=== PATIENT | male | born 1955 | race Hispanic/Latino ===

== ENCOUNTER 2016-11-22 09:01 | Outpatient (CLI) | payer BC ==
[2016-11-22] MEDS ORDERED: LEXISCAN IV ONE ×2 (10:48)
[2016-11-22 12:53] VITALS: BP 138/65
--- NOTE | 2016-11-22 23:30 | Treadmill Report ---
INDICATION: Cardiac clearance. ORDERING PHYSICIAN: Hammad Brandt MD FINDINGS: There is evidence of a moderate sized predominantly fixed inferior and inferolateral wall defect consistent with a prior myocardial infarction in the right coronary artery distribution. There is lack of uptake on gated imaging in the inferior, inferolateral wall suggesting inferior wall akinesis. The left ventricle is normal in size with an ejection fraction measured at 68%. IMPRESSION: 1. Intermediate risk myocardial perfusion scan associated with 1-3% cardiac mortality in the next 1 year. 2. Moderate sized fixed inferior and inferolateral defect with akinesis consistent with a prior history of myocardial infarction in the right coronary artery distribution. 3. No scintigraphic evidence of myocardial ischemia. 4. Clinical correlation is recommended. JOB# [id number] GLENN/BREA
== END 2016-11-22 09:02 | disposition home or self-care (01) ==
LOC: CARD 09:01
PROVIDERS: ATTEND Internal Medicine Cardiovascular Disease
DX: I10 Essential (primary) hypertension (principal); I47.1 Supraventricular tachycardia
CPT/HCPCS: 78452; 93017; A9502; J2785

== ENCOUNTER 2016-11-27 06:06 | Inpatient (IN) | payer BC ==
[2016-11-24 09:58] LABS: Basophils % (Auto) 0.4 % (0.0-1.8); Eosinophils % (Auto) 8.4 % (0.0-4.3); Hematocrit 46.2 % (35.5-45.6); Hemoglobin 15.9 gm/dl (11.8-15.2); Mean Corpuscular HGB Conc 35 % (32-34); Mean Corpuscular Hemoglobin 31 pg (28-32); Mean Corpuscular Volume 91 fl (84-94); Platelet Count 231 K/mm3 (140-440); Red Blood Count 5.07 M/mm3 (3.65-5.03); Red Cell Distribution Width 13.4 % (13.2-15.2); White Blood Count 5.5 K/mm3 (4.5-11.0)
[2016-11-24 10:08] LABS: Anion Gap 17 mmol/L; Blood Urea Nitrogen 9 mg/dL (9-20); Calcium 9.2 mg/dL (8.4-10.2); Carbon Dioxide 28 mmol/L (22-30); Chloride 102.8 mmol/L (98-107); Glucose 104 mg/dL (75-100); Potassium 4.8 mmol/L (3.6-5.0); Sodium 143 mmol/L (137-145)
--- NOTE | 2016-11-24 10:26 | Anesthesia Consultation ---
Anesthesia Consult and Med Hx Date of service: 11/27/16 - Airway Anesthetic Teeth Evaluation: Good ROM Head & Neck: Inadequate (herniated disc C7) Mental/Hyoid Distance: Inadequate Mallampati Class: Class III Intubation Access Assessment: Possibly Difficult - Pulmonary Exam CTA: Yes - Cardiac Exam Cardiac Exam: RRR - Pre-Operative Health Status ASA Pre-Surgery Classification: ASA3 Proposed Anesthetic Plan: General - Pulmonary Hx Smoking: No Hx Asthma: No COPD: No Hx Pneumonia: No Hx Sleep Apnea: No - Cardiovascular System Hx Hypertension: Yes (FOR 8 YRS, DR. LYNNE- PCP, DR.AKSHAY PHIPPS- [employer] ) Hx Cardia Arrhythmia: Yes (h/oSVT - artrial tach w/ freq PAC's; well controlled with BP med) Hx Valvular Heart Disease: Yes (mild AR and MR) Hx Heart Murmur: No Hx Peripheral Vascular Disease: No - Central Nervous System CVA: Yes (10/2016 - no residual) Hx Psychiatric Problems: No - Gastrointestinal Hx Gastroesophageal Reflux Disease: Yes - Endocrine Hx Renal Disease: Yes (h/o kidney stones) Hx End Stage Renal Disease: No Hx Insulin Dependent Diabetes: No - Hematic Hx Anemia: No Hx Sickle Cell Disease: No - Other Systems Hx Alcohol Use: No Hx Substance Use: No Hx Cancer: No Hx Obesity: No - Additional Comments Anesthesia Medical History Comments: Patient states "head extension causes blood flow to cutoff and will become dizzy and/or faint." Herniated/ruptured disc at C7 - no recent MRI's. Per Vascular MD, patient to remain on Plavix and Aspirin. Wears hearing aids.
[~2016-11-27 06:06] MED LIST: ANCEF/STERILE WATER 2 GM/20 ML 20 ML IV NR; NACL 0.9% 1000 ML 1,000 ML IV SCH; PEPCID IV NR; VERSED IV NR
[2016-11-27] MEDS ORDERED: NACL BACTERIOSTATIC INFILTRATI ONE (06:07)
[2016-11-27] MEDS ORDERED: ZOFRAN ONE (06:30)
[2016-11-27] MEDS ORDERED: XYLOCAINE MPF 2% ONE (06:30)
[2016-11-27] MEDS ORDERED: DIPRIVAN 10 MG/ML IV ONE (06:30)
[2016-11-27] MEDS ORDERED: DECADRON ONE (06:30)
[2016-11-27] MEDS ORDERED: ZEMURON IV ONE (06:31)
[2016-11-27] MEDS ORDERED: AMIDATE IV ONE (06:31)
[2016-11-27] MEDS ORDERED: SUBLIMAZE ONE (06:37)
[2016-11-27] MEDS ORDERED: NEO SYNEPHRINE ONE (06:50)
--- NOTE | 2016-11-27 07:36 | Anesthesia Day of Surgery ---
Anesthesia Day of Surgery - Day of Surgery Patient Examined: Yes Patient H&P Reviewed: Yes Patient is NPO: Yes Beta Blockers: Yes
[2016-11-27] MEDS ORDERED: HEPARIN 10,000 UNITS/10 ML ONE (07:59)
[2016-11-27] MEDS ORDERED: ROBINUL ONE ×2 (07:59→09:05)
[2016-11-27] MEDS ORDERED: NACL 0.9% 500 ML ONE (08:00)
[2016-11-27] MEDS ORDERED: DIPRIVAN 10 MG/ML 100 ML IV ONE (08:04)
[2016-11-27] MEDS ORDERED: ZOFRAN IV PRN ×2 (08:43→10:40)
[2016-11-27] MEDS ORDERED: DILAUDID IV PRN (08:43)
[2016-11-27] MEDS ORDERED: HEPARIN 10,000 UNITS/10 ML 2,000 UNIT in NACL 0.9% 500 ML 500 ML IR ONE (09:05)
[2016-11-27] MEDS ORDERED: BLOXIVERZ ONE (09:05)
[2016-11-27] MEDS ORDERED: MARCAINE 0.25% INFILTRATI ONE (09:06)
[2016-11-27] MEDS ORDERED: XYLOCAINE 1% 20 mL INFILTRATI ONE (09:07)
[2016-11-27] MEDS ORDERED: ePHEDrine SULFATE ONE (09:13)
[2016-11-27] MEDS ORDERED: NACL 0.9% 100 ML ONE (09:34)
[2016-11-27] MEDS ORDERED: NACL 0.9% IR ONE (09:34)
[2016-11-27] MEDS ORDERED: NACL 0.9% 1000 ML 1,000 ML ONE (09:34)
[2016-11-27] MEDS ORDERED: PROTAMINE SULFATE IV ONE (10:15)
[2016-11-27] MEDS ORDERED: MORPHINE IV PRN ×2 (10:40)
--- NOTE | 2016-11-27 10:56 | Operative Report ---
Operative Report Operative Report: Date of procedure: 11/27/2016 Pre-operative diagnosis: Symptomatic left internal carotid artery stenosis with recent stroke Post-operative diagnosis: Same Procedure name(s): 1. Left carotid endarterectomy with bovine pericardial patch angioplasty 2. Completion duplex ultrasound Surgeon: Harley Orellana MD, RPVI Plating Technician: MAKAYLA Fabian Anesthesia: Gen. EEG and SSEP's monitoring Findings 1. High grade left ICA stenosis. 2. Necrotic ulcerated lesion with combination of altered fresh thrombus. 3. EEGs and SSEPs remained stable throughout the entire procedure with no changes. 4. Complete resolution of the stenosis was normalization of ICA velocities. 5. No loose debris or intimal flap on the completion duplex. 6. Patient woke up moving all 4 extremities. Specimens: Carotid plaque EBL: 75 mL IV fluids: 950 mL Urine output: 275 mL Disposition: The recovery Indications: Symptomatic left ICA stenosis. Procedure Patient was brought to the operating room and laid on the operating room table in supine position. After general endotracheal anesthesia was achieved and EEG leads placed patient was positioned for the left carotid endarterectomy. Patient was prepped and draped in usual sterile fashion. An incision along the sternocleidomastoid muscle was made using #15 blade. Subcutaneous tissue was divided with Bovie electrocautery. The platysma was divided with Bovie electrocautery. The sternocleidomastoid muscle was dissected and retracted laterally. The internal jugular vein was dissected the facial vein was divided between 2-0 silk ties and it was retracted laterally. The common carotid artery was dissected free and encircled with a Gisel tourniquet. The dissection continued cephalad. The superior thyroid and external carotid arteries were dissected free and encircled with 2-0 silk tie and small vessel loop respectively. The internal carotid artery was dissected distal to the stenosis and encircled with a vessel loop. Patient received 6000 units of heparin. After 3 minutes the vessels were occluded. The internal carotid artery was occluded first. There were no changes in the EEG is after 3 minutes The endarterectomy was performed using a [place] elevator. The plaque was removed in its entirety. The loose intima was picked off using forceps. The endarterectomy site was irrigated with heparinized saline and no intimal flaps were noted. The endarterectomy site was closed using a bovine pericardial patch and 6-0 Prolene running suture. Prior to the completion of all the patch the backbleeding maneuvers were performed. Brisk back bleeding was seen from all the vessels. The patch was completed expeditiously . The clamps were removed the internal carotid clamp was removed last. There were no changes on EEG monitoring. Patient received 15 mL of protamine. The hemostasis was adequate and no significant bleeding was seen from the patch. The pressures during the surgery was maintained at about 170. No bleeding was seen. Postoperative ultrasound was performed, please see findings for details. After the ultrasound, the wound was closed using 3-0 Vicryl platysmal layer and 4-0 Monocryl subcuticular closure. The skin was infiltrated with Marcaine for postop pain. Patient tolerated procedure well. He awoke neurologically intact. He was transferred to recovery room.
[2016-11-27] MEDS ORDERED: NACL 0.9% 1000 ML 1,000 ML IV SCH (11:00)
[2016-11-27] MEDS ORDERED: INTROPIN DRIP 800 MG/D5W 250 ML 250 ML IV SCH (11:00)
[2016-11-27] MEDS ORDERED: NIPRIDE 50 MG in D5W 248 ML IV SCH (11:00)
[2016-11-27] MEDS ORDERED: ANCEF/NS 1 GM/50 ML 50 ML IV SCH ×2 (11:00→20:00)
--- NOTE | 2016-11-27 11:44 | Post Anesthesia Evaluation ---
- Post Anesthesia Evaluation Patient Participated: Yes Airway Patent: Yes Stable Respiratory Function: Yes Nausea/Vomiting: No Temp > 96.8F: Yes Pain Manageable: Yes Adequeate Hydration: Yes Anesthesia Complications: No Block Receding Appropriately: Not Applicable Patient on Ventilator: No
--- NOTE | 2016-11-27 11:46 | Progress Note ---
Assessment and Plan Postop check Status post left carotid endarterectomy. Neurologically intact. No evidence of any intraoperative complications. Plan: ICU monitoring. Strict blood pressure control. Neurologic monitoring. Pain control. Subjective Date of service: 11/27/16 Principal diagnosis: symptomatic left carotid artery stenosis Interval history: No complaints. Following commands. Objective - Exam Narrative Exam: Left neck incision is clean and dry and well approximated. No swelling or drainage. No redness. Moving all 4 extremities neurologically intact. Tongue is midline on request. Voice is normal no hoarseness. - Constitutional Vitals: Vital Signs - 12hr 11/27/16 11/27/16 11/27/16 06:25 11:00 11:05 Temperature 98.1 F 97.1 F L Pulse Rate 69 69 66 Respiratory 20 14 16 Rate Blood Pressure 160/80 98/41 96/49 O2 Sat by Pulse 99 100 100 Oximetry 11/27/16 11/27/16 11/27/16 11:10 11:15 11:30 Temperature Pulse Rate 64 63 62 Respiratory 16 17 15 Rate Blood Pressure 97/50 92/48 93/49 O2 Sat by Pulse 100 99 99 Oximetry - Labs CBC & Chem 7: 11/24/16 09:40 11/24/16 09:40
--- NOTE | 2016-11-27 11:57 | Consultation ---
History of Present Illness Consult date: 11/27/16 Requesting physician: MILO BAKER Reason for consult: other (S/P CEA) History of present illness: PULMONARY/CCM CONSULT NOTE (Full dictation # [id number]) Please see dictated notes for full details Medications and Allergies Allergies Allergy/AdvReac Type Severity Reaction Status Date / Time No Known Allergies Allergy Verified 11/22/16 10:48 Home Medications Medication Instructions Recorded Confirmed Last Taken Type Clopidogrel Bisulfate [Plavix] 75 mg PO DAILY #30 tablet 10/27/16 11/22/1611/27 04:45 Rx Simvastatin [Zocor TAB] 20 mg PO QHS #30 tablet 10/27/16 11/22/16 11/26/16 Rx Aspirin EC [Aspirin Enteric Coated 81 mg PO QDAY 11/22/16 11/22/16 11/27/16 04: 45 History TAB] Metoprolol [Lopressor TAB] 50 mg PO QDAY 11/22/16 11/22/16 11/27/16 04:45 History Cholecalciferol Vit D3 [Vitamin D3] 1,000 unit PO QDAY 11/24/16 11/24/16 History Active Meds: Active Medications Acetaminophen/Hydrocodone Bitart ([place] 5/325) 1 each PO Q6H PRN PRN Reason: Pain, Moderate (4-6) Aspirin (Halfprin Ec) 81 mg PO QDAY NATASHA Cholecalciferol (Vitamin D3) 1,000 unit PO QDAY NATAHSA Clopidogrel Bisulfate (Plavix) 75 mg PO DAILY NATASHA Docusate Sodium (Colace) 100 mg PO BID NATASHA Famotidine (Pepcid) 20 mg IV PREOP NR Stop: 11/27/16 11:59 Last Admin: 11/27/16 06:55 Dose: 20 mg Hydromorphone HCl (Dilaudid) 0.5 mg IV Q10MIN PRN PRN Reason: Pain , Severe (7-10) Stop: 11/30/16 08:44 Cefazolin Sodium (Ancef/Sterile Water 2 Gm/20 Ml) 20 mls @ 80 mls/hr IV PREOP NR PRN Reason: Protocol Stop: 11/27/16 23:00 Sodium Chloride (Nacl 0.9% 1000 Ml) 1,000 mls @ 42 mls/hr IV DIRECT NATASHA Last Admin: 11/27/16 06:50 Dose: 42 mls/hr Dopamine HCl/Dextrose (Intropin Drip 800 Mg/D5w 250 Ml) 250 mls @ 9.14 mls/hr IV TITR NATASHA; 5 MCG/KG/MIN PRN Reason: Protocol Sodium Chloride (Nacl 0.9% 1000 Ml) 1,000 mls @ 100 mls/hr IV DIRECT NATASHA Stop: 11/27/16 20:59 Sodium Nitroprusside 50 mg/ (Dextrose) 250 mls @ 7.31 mls/hr IV TITR NATASHA; 0.25 MCG/KG/MIN PRN Reason: Protocol Cefazolin Sodium (Ancef/Ns 1 Gm/50 Ml) 50 mls @ 100 mls/hr IV Q8H NATASHA Stop: 11/27/16 19:29 Metoprolol Tartrate (Lopressor) 50 mg PO QDAY NATASHA Midazolam HCl (Versed) 2 mg IV PREOP NR Stop: 11/27/16 23:59 Last Admin: 11/27/16 06:52 Dose: 2 mg Morphine Sulfate (Morphine) 2 mg IV Q4H PRN PRN Reason: Pain, Moderate (4-6) Morphine Sulfate (Morphine) 4 mg IV Q4H PRN PRN Reason: Pain , Severe (7-10) Ondansetron HCl (Zofran) 4 mg IV Q8H PRN PRN Reason: Nausea And Vomiting Simvastatin (Zocor) 20 mg PO QHS [facility] Physical Examination Vital signs: Vital Signs Temp Pulse Resp BP 98.7 F 64 20 160/88 11/24/16 09:40 11/24/16 09:40 11/24/16 09:40 11/24/16 09:40 Results - Laboratory Findings CBC and BMP: 11/24/16 09:40 11/24/16 09:40 Abnormal lab findings: Abnormal Labs 11/24/16 11/24/16 09:40 09:40 RBC 5.07 H Hgb 15.9 H Hct 46.2 H MCHC 35 H [place] % (Auto) 7.5 H Eos % (Auto) 8.4 H Eos # 0.5 H Glucose 104 H
--- NOTE | 2016-11-27 12:03 | Admit Criteria Form ---
Admission Criteria Documentation: AMBULATORY SURGERY EXCEPTION CRITERIA Ambulatory Surgery Exception Criteria ( Place 'X' for any and all applicable criteria): Surgery or procedure performed on ambulatory basis may require inpatient stay for[A] ANY ONE of the following(1)(2)(3)(4)(5)(6)(7)(8)(9): [X] I. A preoperative situation, condition, or finding that warrants inpatient stay as indicated by ANY ONE of the following: [] a) Inpatient care needed because of severity of a disease or condition rather than the surgery (eg, severe cardiac or respiratory disease, severe infection) (15) (16 ) (17) (18) [] b) Emergent procedure (eg, angioplasty for acute ischemia)(19) [] c) Complex surgical approach or situation as indicated by ANY ONE of the following(3): [] i) Open approach needed instead of usual endoscopic, transcatheter, or other less invasive procedure [] ii) Difficult approach because of previous operation [] iii) Airway monitoring required after open neck procedures(20)(21) [] iv) Large mass requiring unusually extensive dissection [] v) Additional complicating feature requiring inpatient care (eg, drain management)(22(23): [X] d) Major surgery in a pt with high anesthetic risk as indicated by ANY ONE of the following (2)(3)(5)(7)(8): [X] i) ASA risk class III or higher (severe systemic disease impairing function) [D] [] ii) Advanced age (eg, older than 85 years)(14)(24) [] iii) Symptomatic heart failure(25) [] iv) Symptomatic asthma or COPD(8)(21) [] v) Morbid obesity with hemodynamic or respiratory problems(20)( 21)(26)(27) [] vi) Obstructive sleep apnea(20)(21) [] vii) Former premature infants who are younger than 60 weeks [] viii) High risk for severe postoperative abnormalities (eg, severe postoperative hypocalcemia after parathyroidectomy for severe hyperparathyroidism)(27)( 28) [] ix) Unstable angina(25) [] e) Drug-related risk requiring inpatient stay as indicated by ANY ONE of the following(5)(10)(14)(32)(33) [] i) Procedure requires discontinuing drugs or other therapy (eg , antiarrhythmic medication, antiseizure medication), which necessitates inpatient observation or treatment.(18)(31) [] ii) Major surgery and high risk drug use as indicated by ANY ONE of the following: [] 1) Active abuse of cocaine or similar drug [] 2) Monoamine oxidase inhibitor use [] 3) Other drug identified as posing risk [] f) Inadequate outpatient care situation as indicated by ANY ONE of the following(5)(10)(14)(32)(33) [] i) Patient lives remote from medical facility and procedure has urgent complication potential, and temporary nearby residence cannot be arranged [] ii) Patient will have postprocedure incapacitation and inadequate assistance at home, or alternative level of care cannot be arranged. [] iii) Patient will have long general anesthesia or procedure side effect resolution time, and competent person to stay with patient on first postoperative night at home or alternative level of care cannot be arranged. []iv) Other inadequate outpatient situation that cannot be handled by other means [] II. A perioperative event, condition, or finding that warrants inpatient stay as indicated by ANY ONE of the following (1)(2)(3): [] a) Inadequate physiologic recovery: cardiovascular, respiratory, or hemodynamic status not normal or near preoperative baseline(18) [] b) Hemodynamic instability [] c) Patient not alert with near normal or baseline mental status [] d) Temperature not normal or as expected and not appropriate for outpatient treatment of condition [] e) Ambulatory or appropriate activity level status not yet achieved post procedure [E](34)(35)(36) [] f) Operative site not appropriate (eg, unexpected or excessive drainage or bleeding) [] g) Postoperative effects not resolved or adequately managed (eg, significant pain or vomiting not appropriate for outpatient or next level of care)(10)(12) [] h) Complicating features requiring inpatient care as indicated by ANY ONE of the following(37): [] i) Severe complications of procedure (eg, bowel injury, airway compromise, vascular injury,severe hemorrhage) [] ii) Extensive (eg, dissection far beyond usual scope of procedure ) or prolonged (eg, 120 minutes beyond usual) surgery needed requiring inpatient postoperative care [] iii) Conversion to an open or complex procedure that requires inpatient care (eg, open vs laparoscopic cholecystectomy, abdominal vs vaginal hysterectomy)(38) [] iv) Comorbid condition or test result identified during or post procedure that requires inpatient care (7) [] v) Malignant hyperthermia(30) [] vi) Other complicating feature requiring inpatient care(22)(23) Inpatient stay may be needed until ALL of the following are present (1)(2)(3)(4) (5)(6)(10)(14)(33)(40): []a) Physiologic recovery: cardiovascular, respiratory, and hemodynamic status normal or near preoperative baseline []b) Hemodynamic stability []c) Patient alert, with near normal or baseline mental status []d) Temperature appropriate: patient afebrile or temperature appropriate for outpt treatment of condition []e) Activity level appropriate: ambulatory or appropriate activity level post procedure []f) Operative site appropriate as indicated by ALL of the following: []i) Site dry or with expected drainage []ii) Any blood noted is as expected for procedure. []g) Postoperative effects resolved or managed as indicated by ALL of the following: []i) Pain management appropriate for outpatient (or next level of) care(10) []ii) Minimal nausea and vomiting: if present, successfully treated with oral medication(12) []iii) Headache, dizziness, or drowsiness (if present) are mild. []h) Voiding status acceptable as indicated by ANY ONE of the following: []i) Voiding spontaneously []ii) No voiding but instructions given for follow-up in 6 to 8 hours []iii) Urinary catheter in place, and instructions given for follow-up []i) Complicating features requiring inpatient care manageable at a lower level of care(37) []j) Comorbid conditions manageable at a lower level of care(37) The original [employer] content created by [employer] has been revised. The portions of the content which have been revised are identified through the use of italic text or in bold, and [employer] [facility] [employer] has neither reviewed nor approved the modified material. All other unmodified content is copyright [employer]. Please see references footnoted in the original [employer] edition 2016 Admission Criteria Met: Yes
[2016-11-27] MEDS: NORCO 5/325 PO PRN (19:19)
[2016-11-27] MEDS ORDERED: ZOCOR PO SCH (22:00)
[2016-11-27] MEDS: COLACE PO SCH (22:17)
[2016-11-28] MEDS ORDERED: DEEP SEA NS PRN (02:40)
--- NOTE | 2016-11-28 07:47 | Vascular Lab Report ---
INTRAOPERATIVE CAROTID ARTERY DUPLEX Reason for exam: Completion of carotid endarterectomy Comments on the left: The common and internal carotid arteries are patent without evidence of intraluminal irregularities. Flow velocities appear to be appropriate. No obvious technical defects at the endarterectomy site appreciated. Impression: No obvious technical imperfections at the endarterectomy site.
[2016-11-28] MEDS: NORCO 5/325 PO PRN (08:50)
[2016-11-28] MEDS ORDERED: VITAMIN D3 PO SCH (10:00)
[2016-11-28] MEDS ORDERED: HALFPRIN EC PO SCH (10:00)
[2016-11-28] MEDS ORDERED: LOPRESSOR PO SCH (10:00)
[2016-11-28] MEDS ORDERED: PLAVIX PO SCH (10:00)
[2016-11-28] MEDS ORDERED: PEPCID PO SCH (10:00)
--- NOTE | 2016-11-28 10:07 | Consultation ---
CONSULTING PHYSICIAN: Harley Orellana MD REASON FOR CONSULTATION: Status post carotid endarterectomy, need an ICU admission for monitoring. 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 At that time, a workup was started, which ultimately led to the finding of occlusions in the carotid arteries and his admission for an elective carotid endarterectomy on the left side today. When he came out of the operating room and I stopped by to see him in the room, he was resting in bed, sounded a little hoarse, and that was blamed on the endotracheal tube and intubation. He denied any acute chest pain at that time. He denied fevers or chills. He is obese. He has had a sleep study done a few years back he said, but his in the room admits to witnessed apneas and snoring. He has not been officially diagnosed with sleep apnea. He is a lifetime nonsmoker. That really is as much of the history of presentation as I have. PAST MEDICAL HISTORY: Hypertension. He is obese. PAST SURGICAL HISTORY: Now, status post carotid endarterectomy. MEDICATIONS: He was on at the time I stopped by to see him, according to the medication administration record included the following: He was on [place] 5/325 one tablet p.o. q. 6 hours p.r.n. moderate pain, aspirin 81 mg p.o. daily, Ancef 1 gram IV q. 8 hours, vitamin D3 1000 units p.o. daily, Plavix 75 mg p.o. daily, docusate sodium 100 mg p.o. b.i.d.. He was on dopamine at a point, I believe during perioperatively. Lopressor 50 mg p.o. daily, morphine 2 mg IV q. 4 hours p.r.n. moderate pain and 4 mg IV q. 4 hours p.r.n. severe pain, Zofran 4 mg IV q. 8 hours p.r.n. nausea and vomiting, Zocor 20 mg p.o. at bedtime, and he had been on a nitroprusside drip earlier. ALLERGIES: No known drug allergies. DIET: Obese gentleman. Denies any acute weight loss or gain, preceding few weeks to months. FAMILY AND SOCIAL HISTORY: Lives in the community. He is . Denies alcohol, tobacco, or illicit drug use or abuse. REVIEW OF SYSTEMS: No overt loss of consciousness. No new onset seizures. No new onset focal weakness. No gross hematochezia or melena. No gross hematuria or dysuria. No hematemesis. He has a little bit of sore throat now. No hemoptysis. He has a history of witnessed apneas. Complete review of systems obtained. Pertinent positives and/or negatives as in body of history above, otherwise they are noncontributory. PHYSICAL EXAMINATION: VITAL SIGNS: At presentation, he was afebrile, temperature 98.1, pulse was 69, respiratory rate was 20, blood pressure was 160/80, oxygen sats were 99%. Inspired oxygen concentration was not recorded. HEENT: Pupils are equal, round, about 3 mm, reactive to light. Extraocular muscle movements were intact. Grossly, no palpable lymph nodes in the supraclavicular or submandibular lymph node chains. There is a clean incision on the left neck where the carotid endarterectomy was done. No bleeding, no dressing over it. LUNGS: Auscultation of both lung chávez diminished/distant breath sounds. No wheezing. HEART: Heart sounds 1 and 2 are heard, regular rate and rhythm at the time of my evaluation. ABDOMEN: Soft, full, bowel sounds are positive, nontender. EXTREMITIES: Without overt digital clubbing, cyanosis, or pedal edema. NEUROLOGIC: The exam was grossly nonfocal. LABORATORY DATA: From my review are as follows: White cell count 5500, hemoglobin 15.9, hematocrit 46.2, platelets 231. Serum sodium is pending, potassium is pending, bicarbonate was 28, BUN 9, creatinine 0.9. I do not have any radiographic studies. ASSESSMENT AND PLAN: We have an elderly gentleman in with peripheral vascular disease, atherosclerotic vascular disease and status post carotid endarterectomy, actually doing very well. I have implored him to please get a sleep study done as with this new diagnosis, he has risk of complications and worsening morbidities with untreated sleep apnea increased. For this reason, I have advised him to seek a sleep evaluation once he is discharged from this hospital. For now, we will continue current care as ordered. BiPAP will only be on an as needed basis. He will be placed on GI prophylaxis. He is on DVT prophylaxis. Flu and pneumonia vaccination will be per protocol. Thank you very much for the consult. We will follow along and make further recommendations as picture progresses/becomes clearer. JOB# [id number] CHUCHO/NTS
--- NOTE | 2016-11-28 10:25 | Progress Note ---
Subjective Date of service: 11/28/16 Principal diagnosis: symptomatic left carotid artery stenosis Interval history: seen and examined at bedside; 24hour events reviewed; nursing and respiratory care staff consulted; no adverse overnight events reported to me; Objective Vital Signs - 12hr 11/27/16 11/27/16 11/27/16 22:30 23:00 23:27 Temperature 97.8 F Pulse Rate 68 68 Respiratory 18 22 Rate Blood Pressure 93/47 93/47 O2 Sat by Pulse 97 96 Oximetry 11/27/16 11/28/16 11/28/16 23:30 00:00 00:30 Temperature Pulse Rate 71 75 67 Respiratory 15 18 16 Rate Blood Pressure 97/52 102/50 97/52 O2 Sat by Pulse 96 97 96 Oximetry 11/28/16 11/28/16 11/28/16 01:00 01:30 02:00 Temperature Pulse Rate 66 67 65 Respiratory 19 19 19 Rate Blood Pressure 97/49 97/49 99/53 O2 Sat by Pulse 95 95 95 Oximetry 11/28/16 11/28/16 11/28/16 02:30 03:00 03:27 Temperature 98.4 F Pulse Rate 72 66 Respiratory 19 Rate Blood Pressure 99/53 92/44 O2 Sat by Pulse 97 95 Oximetry 11/28/16 11/28/16 11/28/16 03:30 04:00 04:22 Temperature Pulse Rate 62 61 67 Respiratory 23 17 17 Rate Blood Pressure 92/44 97/47 97/47 O2 Sat by Pulse 97 98 98 Oximetry 11/28/16 11/28/16 11/28/16 04:30 04:36 05:00 Temperature Pulse Rate 60 58 L 63 Respiratory 17 15 18 Rate Blood Pressure 97/47 97/47 99/50 O2 Sat by Pulse 98 99 96 Oximetry 11/28/16 11/28/16 11/28/16 05:30 06:00 06:30 Temperature Pulse Rate 63 64 72 Respiratory 19 18 11 L Rate Blood Pressure 99/50 103/53 103/53 O2 Sat by Pulse 96 96 94 Oximetry 11/28/16 11/28/16 11/28/16 07:00 07:30 08:00 Temperature Pulse Rate 66 64 71 Respiratory 16 19 14 Rate Blood Pressure 103/53 106/61 109/66 O2 Sat by Pulse 94 93 91 Oximetry 11/28/16 11/28/16 11/28/16 08:30 08:50 08:53 Temperature Pulse Rate 78 Respiratory 24 14 Rate Blood Pressure 109/66 O2 Sat by Pulse 94 98 Oximetry 11/28/16 11/28/16 11/28/16 09:00 09:30 10:00 Temperature Pulse Rate 73 70 71 Respiratory 24 19 12 Rate Blood Pressure 107/58 107/58 107/58 O2 Sat by Pulse 94 95 95 Oximetry CBC and BMP: 11/24/16 09:40 11/24/16 09:40 Abnormal lab findings: Abnormal Labs 11/24/16 11/24/16 09:40 09:40 RBC 5.07 H Hgb 15.9 H Hct 46.2 H MCHC 35 H Garvin % (Auto) 7.5 H Eos % (Auto) 8.4 H Eos # 0.5 H Glucose 104 H
[2016-11-28] MEDS: COLACE PO SCH (11:01)
[2016-11-28 11:05] VITALS: BP 107/55
--- NOTE | 2016-11-28 11:15 | Progress Note ---
Assessment and Plan Patient is status post left carotid endarterectomy without postoperative consultation. He's been out of bed, but has not ambulated . His Cooley catheter was removed last night, and he has successfully voided this morning. Discharge instructions were given to the patient and his at the bedside. All questions were asked and answered. We will increase his activity, if tolerated and he will be able to be discharged today after lunch. - Patient Problems (1) Symptomatic stenosis of left carotid artery Current Visit: Yes Status: Acute Subjective Date of service: 11/28/16 Principal diagnosis: symptomatic left carotid artery stenosis Interval history: Patient is awake and alert without specific complaints at present. Objective - Constitutional Vitals: Vital Signs - 12hr 11/27/16 11/27/16 11/28/16 23:27 23:30 00:00 Temperature 97.8 F Pulse Rate 71 75 Respiratory 15 18 Rate Blood Pressure 97/52 102/50 O2 Sat by Pulse 96 97 Oximetry 11/28/16 11/28/16 11/28/16 00:30 01:00 01:30 Temperature Pulse Rate 67 66 67 Respiratory 16 19 19 Rate Blood Pressure 97/52 97/49 97/49 O2 Sat by Pulse 96 95 95 Oximetry 11/28/16 11/28/16 11/28/16 02:00 02:30 03:00 Temperature Pulse Rate 65 72 66 Respiratory 19 19 Rate Blood Pressure 99/53 99/53 92/44 O2 Sat by Pulse 95 97 95 Oximetry 11/28/16 11/28/16 11/28/16 03:27 03:30 04:00 Temperature 98.4 F Pulse Rate 62 61 Respiratory 23 17 Rate Blood Pressure 92/44 97/47 O2 Sat by Pulse 97 98 Oximetry 11/28/16 11/28/16 11/28/16 04:22 04:30 04:36 Temperature Pulse Rate 67 60 58 L Respiratory 17 17 15 Rate Blood Pressure 97/47 97/47 97/47 O2 Sat by Pulse 98 98 99 Oximetry 11/28/16 11/28/16 11/28/16 05:00 05:30 06:00 Temperature Pulse Rate 63 63 64 Respiratory 18 19 18 Rate Blood Pressure 99/50 99/50 103/53 O2 Sat by Pulse 96 96 96 Oximetry 11/28/16 11/28/16 11/28/16 06:30 07:00 07:30 Temperature Pulse Rate 72 66 64 Respiratory 11 L 16 19 Rate Blood Pressure 103/53 103/53 106/61 O2 Sat by Pulse 94 94 93 Oximetry 11/28/16 11/28/16 11/28/16 08:00 08:30 08:50 Temperature Pulse Rate 71 78 Respiratory 14 24 14 Rate Blood Pressure 109/66 109/66 O2 Sat by Pulse 91 94 Oximetry 11/28/16 11/28/16 11/28/16 08:53 09:00 09:30 Temperature Pulse Rate 73 70 Respiratory 24 19 Rate Blood Pressure 107/58 107/58 O2 Sat by Pulse 98 94 95 Oximetry 11/28/16 11/28/16 10:00 11:04 Temperature Pulse Rate 71 73 Respiratory 12 Rate Blood Pressure 107/58 107/55 O2 Sat by Pulse 95 Oximetry General appearance: Present: no acute distress - EENT Eyes: EOM intact ENT: other (diminished hearing augmented by the use of hearing aids) - Neck Neck: supple, other (left neck incision intact without erythema or drainage appreciated. No significant swelling appreciated.) - Respiratory Respiratory effort: normal Extremities: no ischemia - Neurologic Neurologic: no focal deficits (no postoperative focal changes appreciated) - Psychiatric Psychiatric: appropriate mood/affect, intact judgment & insight, cooperative - Labs CBC & Chem 7: 11/24/16 09:40 11/24/16 09:40
--- NOTE | 2016-11-28 11:20 | Discharge Summary ---
Providers - Providers Date of Admission: 11/27/16 06:06 Date of discharge: 11/28/16 Attending physician: HARLEY ORELLANA 11/27/16 10:40 Consult to Physician [CONS] Routine Consulting Provider: SIVA SHI Reason For Exam: ICU admission Place consult to:: dr shi Notified:: ---- Phone number called:: [phone] Was contact made?: Yes If yes, spoke with:: text message sent Time called:: 12:42 11/27/16 11:36 Consult to Physician [CONS] Urgent Consulting Provider: SIVA SHI Reason For Exam: critical care management Place consult to:: Siva Shi Notified:: yes Phone number called:: cell Was contact made?: Yes If yes, spoke with:: Siva Shi Time called:: 11:38 Primary care physician: CHEMA DIEGO Hospitalization Reason for admission: Symptomatic Left Carotid Artery Stenosis Condition: Stable Procedures: Operative Report Operative Report: Date of procedure: 11/27/2016 Pre-operative diagnosis: Symptomatic left internal carotid artery stenosis with recent stroke Post-operative diagnosis: Same Procedure name(s): 1. Left carotid endarterectomy with bovine pericardial patch angioplasty 2. Completion duplex ultrasound Surgeon: Harley Orellana MD, RPVI Professor Of Social Work: MAKAYLA Fabian Anesthesia: Gen. EEG and SSEP's monitoring Findings 1. High grade left ICA stenosis. 2. Necrotic ulcerated lesion with combination of altered fresh thrombus. 3. EEGs and SSEPs remained stable throughout the entire procedure with no changes. 4. Complete resolution of the stenosis was normalization of ICA velocities. 5. No loose debris or intimal flap on the completion duplex. 6. Patient woke up moving all 4 extremities. Specimens: Carotid plaque EBL: 75 mL IV fluids: 950 mL Urine output: 275 mL Disposition: The recovery Indications: Symptomatic left ICA stenosis. Hospital course: Patient was admitted in preparation for the above-stated procedure which was performed without complication. Postoperatively was transferred to the critical care unit. His activity levels were increased and tolerated. He appeared stable for discharge. Discharge instructions were given to the patient and his . He will resume all his home medications including his antiplatelet (aspirin, and Plavix) and statin medications. Disposition: DISCHARGED TO HOME OR SELFCARE - Discharge Diagnoses (1) Symptomatic stenosis of left carotid artery Status: Acute Core Measure Documentation - Palliative Care Palliative Care/ Comfort Measures: Palliative Care/Comfort Measures - Core Measures Any of the following diagnoses?: history only Exam - Constitutional Vitals: Temp Pulse Resp BP Pulse Ox 98.4 F 73 20 107/55 97 11/28/16 03:27 11/28/16 11:04 11/28/16 10:00 11/28/16 11:04 11/28/16 10:00 General appearance: Present: no acute distress - EENT Eyes: Present: EOM intact ENT: other (diminished hearing augmented by the use of hearing aids) - Neck Neck: Present: supple (incision intact without erythema or drainage appreciated) - Respiratory Respiratory effort: normal - Extremities Extremities: no ischemia - Psychiatric Psychiatric: appropriate mood/affect, intact judgment & insight, cooperative - Neurologic Neurologic: no focal deficits (no postoperative focal deficits appreciated) Plan Activity: advance as tolerated Weight Bearing Status: Weight Bear as Tolerated Diet: regular Wound: keep clean and dry Follow up with: CHEMA DIEGO JR, MD [Primary Care Provider] - 14 Days HARLEY ORELLANA MD [Staff Physician] - 14 Days
== END 2016-11-28 13:01 | disposition home or self-care (01) | DRG 39 ==
LOC: 3A 06:06 → CC1 11:13
PROVIDERS: ADMIT Surgery Vascular Surgery; ATTEND Surgery Vascular Surgery
PROC: 03CL0ZZ Extirpation of Matter from Left Internal Carotid Artery, Open Approach (ICD-10-PCS; principal; 2016-11-27)
PROC: 03UL0KZ Supplement Left Internal Carotid Artery with Nonautologous Tissue Substitute, Open Approach (ICD-10-PCS; 2016-11-27)
DX: I63.233 Cerebral infarction due to unspecified occlusion or stenosis of bilateral carotid arteries (principal); I10 Essential (primary) hypertension; E78.2 Mixed hyperlipidemia; I49.9 Cardiac arrhythmia, unspecified; D64.9 Anemia, unspecified
CPT/HCPCS: 36415; 36620; 80048; 85025; 86850; 86900; 86901; 88304; 88311; 94760; C1768; J0690; J1100; J1644; J2250; J2270; J2370; J2405; J2704; J2710; J2720; J3010; J7030; J7040

== ENCOUNTER 2017-01-26 13:22 | Outpatient (CLI) | payer BC | END 2017-01-26 13:23 | disposition home or self-care (01) | LOC: CARD 13:22 | PROVIDERS: ATTEND Internal Medicine | DX: Z00.00 Encounter for general adult medical examination without abnormal findings (principal) | CPT/HCPCS: 93005; 93010 ==

== ENCOUNTER 2017-01-31 12:48 | Outpatient (CLI) | payer BC | END 2017-01-31 12:49 | disposition home or self-care (01) | LOC: LABHHL 12:48 | PROVIDERS: ATTEND Surgery Vascular Surgery | DX: I63.233 Cerebral infarction due to unspecified occlusion or stenosis of bilateral carotid arteries (principal); I10 Essential (primary) hypertension; T81.4XXA Infection following a procedure, initial encounter | CPT/HCPCS: 87116 ==

== ENCOUNTER 2017-03-01 07:48 | Outpatient (CLI) | payer BC ==
--- NOTE | 2017-03-02 22:06 | Vascular Lab Report ---
CAROTID DUPLEX STUDY: RIGHT PSVEDV CCA PROX: 8820 CCA DIST: 7917 ICA PROX: 6914 ICA MID: 8623 ICA DIST: 6721 ECA: 106 VERT: 51 14 LEFT PSVEDV CCA PROX: 6915 CCA DIST:119`26 ICA PROX:64427 ICA MID: 7725 ICA DIST: 6422 ECA: 84 VERT: 54 12 REASON FOR EXAM: Cerebral infarct/status post left CEA. COMMENTS ON THE RIGHT: Doppler frequency analysis is consistent with 16 to 49 percent diameter reduction of the internal carotid artery. Minimal amount of plaque is seen. The common carotid artery is patent. The external carotid artery is patent. The vertebral artery has antegrade flow. COMMENTS ON THE LEFT: Doppler frequency analysis is consistent with 50 to 79 percent diameter reduction by velocity criteria only of the internal carotid artery. No significant amount of plaque is noted. No evidence of vessel narrowing noted. The carotid bulb appearance is consistent with a postoperative CEA The common carotid artery is patent. The external carotid artery is patent. The vertebral artery has antegrade flow. IMPRESSION: 16 to 49 percent diameter reduction of the right internal carotid artery. 50 to 79 percent diameter reduction by velocity criteria only without evidence of luminal narrowing of the left internal carotid artery. Normal postoperative appearance of the carotid bulb Clinical correlation recommended
== END 2017-03-01 07:49 | disposition home or self-care (01) ==
LOC: VAS 07:48
PROVIDERS: ATTEND Surgery Vascular Surgery
DX: I63.233 Cerebral infarction due to unspecified occlusion or stenosis of bilateral carotid arteries (principal); I10 Essential (primary) hypertension; E78.2 Mixed hyperlipidemia
CPT/HCPCS: 93880

== ENCOUNTER 2018-01-11 13:32 | Outpatient (CLI) | payer BC ==
--- NOTE | 2018-01-11 15:33 | XRay Report ---
RIGHT HIP RADIOGRAPHS INDICATION: Right hip arthritis. COMPARISON: None similar. FINDINGS: An AP pelvic radiograph with frog-leg projection of the right hip demonstrate intact articulation. Slight acetabular degenerative spurring possible. Imaged bilateral SI joints appear intact. Nonobstructive bowel gas pattern. Few pelvic phleboliths. CONCLUSION: No acute radiographic abnormality. Thank you for the opportunity to participate in this patient's care.
== END 2018-01-11 13:33 | disposition home or self-care (01) ==
LOC: CARD 13:32
PROVIDERS: ATTEND Internal Medicine
DX: Z12.5 Encounter for screening for malignant neoplasm of prostate (principal); I10 Essential (primary) hypertension; E78.2 Mixed hyperlipidemia; E55.9 Vitamin D deficiency, unspecified; M16.11 Unilateral primary osteoarthritis, right hip; I87.8 Other specified disorders of veins
CPT/HCPCS: 93005; 93010

== ENCOUNTER 2018-03-11 08:02 | Outpatient (CLI) | payer BC ==
--- NOTE | 2018-03-20 11:49 | Vascular Lab Report ---
CAROTID DUPLEX STUDY: RIGHT PSVEDV CCA PROX:81296 CCA DIST:9120 ICA PROX:34847 ICA MID:8726 ICA DIST:7924 ECA: 125 VERT: 55 14 LEFT PSVEDV CCA PROX:8320 CCA DIST:25789 ICA PROX:63108 ICA MID:9535 ICA DIST:9832 ECA: 124 VERT: 48 10 REASON FOR EXAM: Stroke. COMMENTS ON THE RIGHT: Doppler frequency analysis is consistent with 16 to 49 percent diameter reduction of the internal carotid artery. A moderate amount of extensive plaque is seen. The common carotid artery is patent. The external carotid artery is patent. The vertebral artery has antegrade flow. COMMENTS ON THE LEFT: Doppler frequency analysis is consistent with 50 to 79 percent diameter reduction of the internal carotid artery. A moderate amount of extensive plaque is seen. The common carotid artery is patent. The external carotid artery is patent. The vertebral artery has antegrade flow. IMPRESSION: 50-79% diameter reduction the left internal carotid artery. Mixed density plaque is seen. Less than 50% diameter reduction in the right internal carotid artery with significant plaque formation. Consider CT angiography for further evaluation.
== END 2018-03-11 08:03 | disposition home or self-care (01) ==
LOC: VAS 08:02
PROVIDERS: ATTEND Surgery Vascular Surgery
DX: I63.233 Cerebral infarction due to unspecified occlusion or stenosis of bilateral carotid arteries (principal); I10 Essential (primary) hypertension; E78.2 Mixed hyperlipidemia
CPT/HCPCS: 93880

== ENCOUNTER 2018-07-12 06:09 | Outpatient (CLI) | payer BC ==
[2018-07-12 07:00] LABS: Alanine Aminotransferase 20 units/L (7-56); Albumin 4.4 g/dL (3.9-5); BUN/Creatinine Ratio 13; Blood Urea Nitrogen 12 mg/dL (9-20); Chol/HDL Ratio 3.43 %; HDL Cholesterol 39 mg/dL (40-59); Hemolysis Index 11; LDL Cholesterol,Direct 82 mg/dL (50-130)
== END 2018-07-12 06:10 | disposition home or self-care (01) ==
LOC: LAB 06:09
PROVIDERS: ATTEND Internal Medicine
DX: I10 Essential (primary) hypertension (principal); E78.2 Mixed hyperlipidemia
CPT/HCPCS: 36415; 80053; 80061

== ENCOUNTER 2018-09-04 07:58 | Outpatient (CLI) | payer BC ==
--- NOTE | 2018-09-10 14:06 | Vascular Lab Report ---
CAROTID DUPLEX STUDY: RIGHT PSVEDV CCA PROX:9415 CCA DIST:9820 ICA PROX:8318 ICA MID:9830 ICA DIST:9735 ECA: 119 VERT: 46 14 LEFT PSVEDV CCA PROX:7721 CCA DIST:7120 ICA PROX:6416 ICA MID:8129 ICA DIST:8932 ECA: 134 VERT: 40 12 REASON FOR EXAM: Stroke. COMMENTS ON THE RIGHT: Doppler frequency analysis is consistent with 16 to 49 percent diameter reduction of the internal carotid artery. A small amount of plaque is seen. The common carotid artery is patent. The external carotid artery is patent. The vertebral artery has antegrade flow. COMMENTS ON THE LEFT: Doppler frequency analysis is consistent with 16 to 49 percent diameter reduction of the internal carotid artery. A small to moderate amount of plaque seen. The common carotid artery is patent. The external carotid artery is patent. The vertebral artery has antegrade flow. IMPRESSION: Less than 50% diameter reduction in the internal carotid arteries bilaterally. Consider repeat carotid artery duplex in 12 months if clinically appropriate.
== END 2018-09-04 07:59 | disposition home or self-care (01) ==
LOC: VAS 07:58
PROVIDERS: ATTEND Surgery Vascular Surgery
DX: I63.233 Cerebral infarction due to unspecified occlusion or stenosis of bilateral carotid arteries (principal); I10 Essential (primary) hypertension; E78.2 Mixed hyperlipidemia
CPT/HCPCS: 93880

== ENCOUNTER 2019-01-08 08:25 | Outpatient (CLI) | payer BC ==
[2019-01-08 08:45] LABS: Basophils % (Auto) 0.4 % (0.0-1.8); Eosinophils # (Auto) 0.4 K/mm3 (0.0-0.4); Eosinophils % (Auto) 6.9 % (0.0-4.3); Hematocrit 48.4 % (35.5-45.6); Hemoglobin 16.4 gm/dl (11.8-15.2); Lymphocytes # (Auto) 1.4 K/mm3 (1.2-5.4); Lymphocytes % (Auto) 25.5 % (13.4-35.0); Mean Corpuscular HGB Conc 34 % (32-34); Mean Corpuscular Volume 92 fl (84-94); Monocytes # (Auto) 0.4 K/mm3 (0.0-0.8); Monocytes % (Auto) 7.3 % (0.0-7.3); Platelet Count 240 K/mm3 (140-440); Red Blood Count 5.29 M/mm3 (3.65-5.03); Red Cell Distribution Width 12.8 % (13.2-15.2)
[2019-01-08 09:12] LABS: Alanine Aminotransferase 16 units/L (7-56); Albumin 4.6 g/dL (3.9-5); BUN/Creatinine Ratio 13; Blood Urea Nitrogen 12 mg/dL (9-20); Calcium 9.3 mg/dL (8.4-10.2); Chol/HDL Ratio 3.67 %; HDL Cholesterol 40 mg/dL (40-59); Hemolysis Index 11; LDL Cholesterol,Direct 97 mg/dL (50-130)
== END 2019-01-08 08:26 | disposition home or self-care (01) ==
LOC: LAB 08:25
PROVIDERS: ATTEND Internal Medicine
DX: Z12.11 Encounter for screening for malignant neoplasm of colon (principal); Z12.5 Encounter for screening for malignant neoplasm of prostate; I10 Essential (primary) hypertension
CPT/HCPCS: 36415; 80053; 80061; 82270; 84153; 85025

== ENCOUNTER 2019-09-15 07:09 | Outpatient (CLI) | payer BC ==
--- NOTE | 2019-09-15 08:57 | Vascular Lab Report ---
"DUPLEX DOPPLER ULTRASOUND CAROTID, BILATERAL INDICATION: HX OF LEFT CAROTID ENDARTERECTOMY/HX OF STROKE. FINDINGS: RIGHT CAROTID: Mild atherosclerotic plaque. Right CCA velocity: 97 cm/sec. Right ICA peak systolic velocity: 93 cm/sec. ICA/CCA PSV Ratio: 1.0. Right Vertebral Artery: Antegrade flow. LEFT CAROTID: Mild atherosclerotic plaque. Left CCA velocity: 122 cm/sec. Left ICA peak systolic velocity: 92 cm/sec. ICA/CCA PSV Ratio: 0.8. Left Vertebral Artery: Antegrade flow. IMPRESSION: 1. Right Internal Carotid Artery: Less than 50% diameter stenosis. 2. Left Internal Carotid Artery: Less than 50% diameter stenosis. Velocity criteria are extrapolated from diameter data as defined by the Society of Radiologists in Ul trasound Consensus Conference, Radiology 2003; 229;340-346. Degree of Stenosis (%) || ICA PSV (cm/sec) || Plaque estimate (%) || ICA/CCA PSV Ratio Normal <125 None <2.0 <50 <125 <50 <2.0 50-69 125-230 50 2.0-4.0 70 but less than 100 >230 50 >4.0 Near occlusion High, low, or none visible variable Total occlusion None visible; no lumen N/A Signer Name: Slick Segura MD Signed: 09/15/2019 8:53 AM Workstation Name: [id number]"
== END 2019-09-15 07:10 | disposition home or self-care (01) ==
LOC: VAS 07:09
PROVIDERS: ATTEND Surgery Vascular Surgery
DX: I65.23 Occlusion and stenosis of bilateral carotid arteries (principal); I10 Essential (primary) hypertension; E78.2 Mixed hyperlipidemia
CPT/HCPCS: 93880

== ENCOUNTER 2019-10-28 06:49 | Day surgery (SDC) | payer BC, MEDICARE ==
[2019-10-28] MEDS ORDERED: WATER FOR IRRIG STERILE 250 ML BOTTLE IR ONE (07:19)
[2019-10-28] MEDS ORDERED: SODIUM CHLORIDE 0.9% 1000 ML 1,000 ML ONE (07:24)
[2019-10-28] MEDS ORDERED: SODIUM CHLORIDE 0.9% 1000 ML 1,000 ML IV SCH (07:45)
--- NOTE | 2019-10-28 08:05 | Anesthesia Day of Surgery ---
Anesthesia Day of Surgery - Day of Surgery Patient Examined: Yes Patient H&P Reviewed: Yes Patient is NPO: Yes Beta Blockers: Yes
--- NOTE | 2019-10-28 08:06 | Anesthesia Consultation ---
Anesthesia Consult and Med Hx Date of service: 10/28/19 - Airway Anesthetic Teeth Evaluation: Good ROM Head & Neck: Adequate Mental/Hyoid Distance: Adequate Mallampati Class: Class II Intubation Access Assessment: Good - Pre-Operative Health Status ASA Pre-Surgery Classification: ASA3 Proposed Anesthetic Plan: MAC - Pulmonary Hx Asthma: No COPD: No Hx Pneumonia: No - Cardiovascular System Hx Hypertension: Yes (Pt states can climb two flights of stairs) Hx Cardia Arrhythmia: Yes (Tachy-on beta scar) Hx Peripheral Vascular Disease: Yes (Had CVA and L CEA Nov 2016) - Central Nervous System CVA: Yes Hx Psychiatric Problems: No - Endocrine Hx End Stage Renal Disease: No
[2019-10-28] MEDS ORDERED: PROPOFOL 200 MG/20 ML VIAL IV ONE ×2 (08:11)
[2019-10-28] MEDS ORDERED: LIDOCAINE (1%) 10 MG/1 ML VIAL 20 ML MDV ONE (08:11)
--- NOTE | 2019-10-28 09:02 | Short Stay Summary ---
Short Stay Documentation Date of service: 10/28/19 Narrative H&P: The patient presents for surveillance colonoscopy for history of polyps. Last study 10 years ago. - History Past Medical History: hypertension, stroke Past Surgical History: Other (hernia repair) Social history: , lives with family - Allergies and Medications Current Medications: Allergies No Known Allergies Allergy (Verified 11/22/16 10:48) Home Medications Medication Instructions Recorded Confirmed Last Taken Type Clopidogrel Bisulfate [Plavix] 75 mg PO DAILY #30 tablet 10/27/16 10/28/19 10/21/19 11:00 Rx Simvastatin (Nf) [Zocor TAB] 20 mg PO QHS #30 tablet 10/27/16 10/28/19 10/27/19 21:00 Rx Aspirin EC [Halfprin EC] 81 mg PO QDAY 11/22/16 10/28/19 10/21/19 12:00 History Metoprolol [Lopressor TAB] 50 mg PO QDAY 11/22/16 10/28/19 10/28/19 05:30 History amLODIPine 1 tab PO DAILY 10/28/19 10/28/19 10/28/19 05:30 History Active Medications Sodium Chloride (Nacl 0.9% 1000 Ml) 1,000 mls @ 50 mls/hr IV DIRECT NATASHA Last Admin: 10/28/19 07:51 Dose: 50 mls/hr Documented by: - Physical exam General appearance: no acute distress, well-nourished Integumentary: no rash, no growths, no abnormal pigmentation HEENT: Atraumatic, PERRLA, EOMI, Mucous membr. moist/pink Lungs: Clear to auscultation, Normal air movement Breasts: deferred Heart: Regular rate, Normal S1, Normal S2, No murmurs Gastrointestinal: normoactive bowel sounds, no tenderness, no distended, no masses, no guarding, no organomegaly Male Genitourinary: deferred Rectal Exam: deferred Extremities: no ischemia, pulses intact, pulses symmetrical, No edema, normal temperature, normal color, Full ROM Neurological: Normal gait, Normal speech, Strength at 5/5 X4 ext, Normal tone, Sensation intact, Cranial nerves 3-12 NL - Brief post op/procedure progress note Date of procedure: 10/28/19 Findings: report dictated. Estimated blood loss: none Pathology: list (transverse colon polyp) Specimen disposition: to lab Condition: stable - Disposition Condition at discharge: Good Disposition: DC-01 TO HOME OR SELFCARE - Discharge Diagnoses (1) History of colon polyps Status: Acute Short Stay Discharge Plan Activity: other (no driving for 24 hours) Weight Bearing Status: Full Weight Bearing Diet: regular Follow up with: CHEMA DIEGO JR, MD [Primary Care Provider] - 7 Days
--- NOTE | 2019-10-28 09:06 | Operative Report ---
Operative Report Operative Report: Date of procedure: 10/28/2019 Preprocedure diagnosis: History of colon polyps, last study 10 years ago. Post procedure diagnosis: Diminutive transverse colon polyp Procedure: Colonoscopy to the cecum cold snare polypectomy Endoscopist: Dr. Dash Anesthesia: Monitored anesthesia care per anesthesia department Estimated blood loss: 0 Medications: Monitored anesthesia care. See separate report by anesthesia for details. After careful discussion of the nature and purpose of the procedure as well as details of the technique risks benefits and alternatives the patient gave consent. Please see recent history and physical from the office. The patient was placed in the left lateral decubitus position and medicated per anesthesia. A rectal exam was performed sphincter tone was normal there were no masses palpable. The Olympus colonoscope was passed transanally and advanced under continuous direct vision without difficulty to the cecum. The colon was well prepared. The cecum was normal. The ascending colon was normal and on forward and retroflexed views. The transverse colon revealed a 5 mm sessile polyp. The polyp was removed with cold snare resection and retrieved by suction. The descending colon and sigmoid colon were normal. The rectum was normal on forward and retroflexed views. The procedure was well-tolerated overall and the patient was observed in recovery. Conclusions: Diminutive transverse colon polyp, otherwise normal study. Plan: Await pathology. Repeat colonoscopy in 5 years. Signed electronically: Joaquin Dash M.D.
[2019-10-28 09:52] VITALS: BP 117/66
== END 2019-10-28 06:50 | disposition home or self-care (01) ==
LOC: GIO 06:49
PROVIDERS: ATTEND Internal Medicine Gastroenterology
DX: Z12.11 Encounter for screening for malignant neoplasm of colon (principal); D12.3 Benign neoplasm of transverse colon; K57.30 Diverticulosis of large intestine without perforation or abscess without bleeding; I73.9 Peripheral vascular disease, unspecified; E78.00 Pure hypercholesterolemia, unspecified; I10 Essential (primary) hypertension; M19.90 Unspecified osteoarthritis, unspecified site; Z79.899 Other long term (current) drug therapy; Z79.82 Long term (current) use of aspirin; Z86.010 Personal history of colon polyps; Z87.442 Personal history of urinary calculi; Z98.890 Other specified postprocedural states; Z86.73 Personal history of transient ischemic attack (TIA), and cerebral infarction without residual deficits
CPT/HCPCS: 45385; 88305; J2704; J7030

== ENCOUNTER 2019-11-25 06:28 | Outpatient (CLI) | payer BC, MEDICARE ==
[2019-11-25 06:50] LABS: Basophils % (Auto) 0.8 % (0.0-1.8); Eosinophils # (Auto) 0.4 K/mm3 (0.0-0.4); Eosinophils % (Auto) 7.8 % (0.0-4.3); Hematocrit 45.6 % (35.5-45.6); Hemoglobin 15.6 gm/dl (11.8-15.2); Lymphocytes # (Auto) 1.4 K/mm3 (1.2-5.4); Lymphocytes % (Auto) 27.8 % (13.4-35.0); Mean Corpuscular HGB Conc 34 % (32-34); Mean Corpuscular Volume 92 fl (84-94); Monocytes # (Auto) 0.5 K/mm3 (0.0-0.8); Platelet Count 212 K/mm3 (140-440); Red Blood Count 4.98 M/mm3 (3.65-5.03); Red Cell Distribution Width 13.2 % (13.2-15.2)
[2019-11-25 07:11] LABS: Alanine Aminotransferase 23 units/L (7-56); Albumin 4.3 g/dL (3.9-5); BUN/Creatinine Ratio 11; Blood Urea Nitrogen 10 mg/dL (9-20); Hemolysis Index 19; LDL Cholesterol,Direct 77 mg/dL (50-130)
[2019-11-25 07:25] LABS: Chol/HDL Ratio 3.25 %; HDL Cholesterol 39 mg/dL (40-59)
== END 2019-11-25 06:29 | disposition home or self-care (01) ==
LOC: LAB 06:28
PROVIDERS: ATTEND Internal Medicine
DX: E78.2 Mixed hyperlipidemia (principal); I10 Essential (primary) hypertension
CPT/HCPCS: 36415; 80053; 80061; 85025

== ENCOUNTER 2020-01-23 08:12 | Outpatient (CLI) | payer BC, MEDICARE ==
[2020-01-23 08:40] LABS: Basophils % (Auto) 0.4 % (0.0-1.8); Eosinophils # (Auto) 0.3 K/mm3 (0.0-0.4); Hematocrit 46.9 % (35.5-45.6); Hemoglobin 16.1 gm/dl (11.8-15.2); Lymphocytes # (Auto) 1.5 K/mm3 (1.2-5.4); Mean Corpuscular HGB Conc 34 % (32-34); Mean Corpuscular Volume 92 fl (84-94); Monocytes # (Auto) 0.4 K/mm3 (0.0-0.8); Monocytes % (Auto) 7.5 % (0.0-7.3); Platelet Count 230 K/mm3 (140-440); Red Blood Count 5.12 M/mm3 (3.65-5.03); Red Cell Distribution Width 13.2 % (13.2-15.2)
[2020-01-23 08:56] LABS: Alanine Aminotransferase 9 units/L (7-56); Albumin 4.7 g/dL (3.9-5); BUN/Creatinine Ratio 14; Blood Urea Nitrogen 14 mg/dL (9-20); Calcium 9.3 mg/dL (8.4-10.2); Chol/HDL Ratio 3.34 %; HDL Cholesterol 44 mg/dL (40-59); Hemolysis Index 5; LDL Cholesterol,Direct 85 mg/dL (50-130)
[2020-01-26 14:15] LABS: Vitamin D, 25-OH, D2 <4 ng/mL
== END 2020-01-23 08:13 | disposition home or self-care (01) ==
LOC: LAB 08:12
PROVIDERS: ATTEND Internal Medicine
DX: Z00.00 Encounter for general adult medical examination without abnormal findings (principal); Z12.5 Encounter for screening for malignant neoplasm of prostate
CPT/HCPCS: 36415; 80053; 80061; 82306; 84153; 84443; 85025

== ENCOUNTER 2020-03-20 16:41 | Emergency (ER) | payer BC, MEDICARE ==
[2020-03-20 17:14] VITALS: BP 128/65
[2020-03-20] MEDS ORDERED: LIDOCAINE (2%) 20 MG/1 ML VIAL 20 ML MDV INFILTRATI STA (17:22)
--- NOTE | 2020-03-20 17:22 | XRay Report ---
Left hand 3 views INDICATION: Left hand pain following injury. IMPRESSION: No acute fracture or subluxation of the left hand is identified. Signer Name: Saman Bright MD Signed: 03/20/2020 5:18 PM Workstation Name: [id number]
--- NOTE | 2020-03-20 18:03 | Emergency Department Report ---
ED Upper Extremity Inj HPI - General Chief Complaint: Extremity Injury, Upper Stated Complaint: LEFT HAND INJURY Time Seen by Provider: 03/20/20 17:07 Source: patient Mode of arrival: Ambulatory Limitations: No Limitations - History of Present Illness Initial Comments: 64-year-old male employee of [employer] was at home trying to maneuver his utility trailer when he lost control causing it to crush his hand against his vehicle resulting in swelling and laceration to the mid aspect of the fourth and third metacarpophalangeal joint with and also resulted in a laceration. Reports having normal sensation but dull dull throbbing pain no prior injury. MD Complaint: Injury to:: left -: Sudden Other Extremity Injury: Hand: Left Improves With: none Worsens With: none Context: crush Associated Symptoms: denies: weakness, numbness, suspects foreign body, nausea/vomiting, heard/felt popping sensat - Related Data Home Medications Medication Instructions Recorded Confirmed Last Taken Aspirin EC [Halfprin EC] 81 mg PO QDAY 11/22/16 10/28/19 10/21/19 12:00 Metoprolol [Lopressor TAB] 50 mg PO QDAY 11/22/16 10/28/19 10/28/19 05:30 amLODIPine 1 tab PO DAILY 10/28/19 10/28/19 10/28/19 05:30 Previous Rx's Medication Instructions Recorded Last Taken Type Clopidogrel Bisulfate [Plavix] 75 mg PO DAILY #30 tablet 10/27/16 10/21/19 11:00 Rx Simvastatin (Nf) [Zocor TAB] 20 mg PO QHS #30 tablet 10/27/16 10/27/19 21:00 Rx Allergies Allergy/AdvReac Type Severity Reaction Status Date / Time No Known Allergies Allergy Verified 11/22/16 10:48 ED Review of Systems ROS: Stated complaint: LEFT HAND INJURY Other details as noted in HPI Comment: All other systems reviewed and negative ED Past Medical Hx - Past Medical History Previous Medical History?: Yes Hx Hypertension: Yes (Pt states can climb two flights of stairs) Hx Congestive Heart Failure: No Hx Diabetes: No Hx Arthritis: Yes Hx Kidney Stones: Yes Hx Asthma: No Hx COPD: No Hx HIV: No - Surgical History Past Surgical History?: Yes - Social History Smoking Status: Never Smoker Substance Use Type: None - Medications Home Medications: Home Medications Medication Instructions Recorded Confirmed Last Taken Type Clopidogrel Bisulfate [Plavix] 75 mg PO DAILY #30 tablet 10/27/16 10/28/19 1 12/22/18 11:00 Rx Simvastatin (Nf) [Zocor TAB] 20 mg PO QHS #30 tablet 10/27/16 10/28/19 10/27/19 21:00 Rx Aspirin EC [Halfprin EC] 81 mg PO QDAY 11/22/16 10/28/19 10/21/19 12:00 History Metoprolol [Lopressor TAB] 50 mg PO QDAY 11/22/16 10/28/19 10/28/19 05:30 History amLODIPine 1 tab PO DAILY 10/28/19 10/28/19 10/28/19 05:30 History ED Physical Exam - General Limitations: No Limitations General appearance: alert, in no apparent distress - Head Head exam: Present: atraumatic, normocephalic - Eye Eye exam: Present: normal appearance, PERRL. Absent: EOMI - ENT ENT exam: Present: normal exam, mucous membranes moist - Neck Neck exam: Present: normal inspection - Respiratory Respiratory exam: Present: normal lung sounds bilaterally. Absent: respiratory distress - Cardiovascular Cardiovascular Exam: Present: regular rate, normal rhythm. Absent: systolic mu rmur, diastolic murmur, rubs, gallop - Rectal Rectal exam: Present: deferred - Extremities Exam Extremities exam: Present: normal inspection - Expanded Upper Extremity Exam Left Elbow exam: Present: normal inspection, full ROM Forearm Wrist exam: Present: normal inspection, full ROM Hand Wrist exam: Present: tenderness, swelling Hand L/R Back: 1 - laceration to left hand with local swelling Vascular: Present: normal capillary refill. Absent: vascular compromise, pulse deficit brachial art - Back Exam Back exam: Present: normal inspection - Neurological Exam Neurological exam: Present: alert, oriented X3, CN II-XII intact - Psychiatric Psychiatric exam: Present: normal affect, normal mood - Skin Skin exam: Present: warm, dry, intact, normal color. Absent: rash ED Course Vital Signs 03/20/20 16:46 Temperature 98.6 F Pulse Rate 70 Respiratory 16 Rate Blood Pressure 128/65 [Right] O2 Sat by Pulse 98 Oximetry - Procedure Description Procedures done: Left hand laceration repair 2.5 cm. Area prepped and draped in sterile fashion anesthesia achieved with 2% lidocaine with no epinephrine 4-0 Prolene was placed in simple noted fashion x3 for good wound approximation and closure hemostasis was achieved. This may blood loss less than 2 cc of the fingers were placed in a splint and wound was bandaged with nonstick dressing for closure ED Medical Decision Making - Radiology Data Radiology results: report reviewed interpreted by me: Referring Physician:ED LILAPatient Name:NASIM VORASPatient ID:[id number] of :[id number]:MaleAccession:[id number] Date:4005-51-24Rndrum Status:Finalized Findings [facility] [address] [place] [address] XRay Report Signed Patient: NASIM RAMIRES MR#: [id number] : 1955 Acct:[id number] Age/Sex: 64 / M ADM Date: 03/20/20 Loc: ED Attending Dr: Ordering Physician: DOYLE SHARP MD Date of Service: 03/20/20 Procedure(s): XR hand 3+V LT Accession Number(s): [id number] cc: DOYLE SHARP MD Fluoro Time In Minutes: Left hand 3 views INDICATION: Left hand pain following injury. IMPRESSION: No acute fracture or subluxation of the left hand is identified. Signer Name: Saman Bright MD Signed: 03/20/2020 5:18 PM Workstation Name: [id number] Transcribed By: Dictated By: Saman Bright MD Electronically Authenticated By: Saman Bright MD Signed Date/Time: 03/20/201717 DD/ 16 TD/TT: No fracture - Medical Decision Making 64-year-old male status post laceration to the hand and crush injury due to a trailer hitch. Patient had laceration repaired in the emergency department after copious irrigation. At the at the exploration of the wound there was no evidence of any retained foreign body, no evidence of any underlying fracture x- ray was normal. Tetanus shot is updated. We will defer antibiotics at this present time given the location, the event time, and the patient without surrounding signs of infection. Disposition will discharge patient he was given strict wound return precautions and instructions to follow-up with her primary care within 2 to 3 days for wound reevaluation and going to have the sutures removed Critical care attestation.: If time is entered above; I have spent that time in minutes in the direct care of this critically ill patient, excluding procedure time. ED Disposition Clinical Impression: Hand contusion, Hand laceration Disposition: DC- TO HOME OR SELFCARE Is pt being admited?: No Does the pt Need Aspirin: No Condition: Stable Instructions: Laceration (ED), Contusion in Adults (ED) Additional Instructions: Evaluation for suture removal in 10 days Referrals: CHEMA DIEGO JR, MD [Primary Care Provider] - 3-5 Days
== END 2020-03-20 18:37 | disposition home or self-care (01) ==
LOC: ED 16:41
PROC: 0HQGXZZ Repair Left Hand Skin, External Approach (ICD-10-PCS; principal; 2020-03-20)
DX: S61.412A Laceration without foreign body of left hand, initial encounter (principal); S60.222A Contusion of left hand, initial encounter; I10 Essential (primary) hypertension; M19.90 Unspecified osteoarthritis, unspecified site; Z79.82 Long term (current) use of aspirin; Z79.899 Other long term (current) drug therapy; X58.XXXA Exposure to other specified factors, initial encounter; Y93.89 Activity, other specified; Y92.89 Other specified places as the place of occurrence of the external cause; Y99.8 Other external cause status
CPT/HCPCS: 99283

== ENCOUNTER 2020-04-26 07:51 | Outpatient (CLI) | payer BC, MEDICARE ==
[2020-04-26] MEDS ORDERED: REGADENOSON 0.4 MG/5 ML INJ IV ONE (11:28)
--- NOTE | 2020-04-27 09:30 | Treadmill Report ---
THALLIUM STRESS TEST REPORT LEFT VENTRICLE: Left ventricular chamber size is within normal spread. Perfusion study demonstrates a small to moderate sized, fixed inferior defect. On the resting study, there is no significant reversibility. Gated analysis demonstrates normal left ventricular systolic function, ejection fraction 60%. CONCLUSION: Fixed inferior defect of [id number] intensity, consistent with a possible prior inferior myocardial infarction. There is no significant reversible ischemia demonstrated, clinical correlation is recommended. [facility]# [id number] CA/NTS
== END 2020-04-26 07:52 | disposition home or self-care (01) ==
LOC: ECHO 07:51
PROVIDERS: ATTEND Internal Medicine Cardiovascular Disease
DX: I08.1 Rheumatic disorders of both mitral and tricuspid valves (principal); I27.20 Pulmonary hypertension, unspecified; I47.1 Supraventricular tachycardia
CPT/HCPCS: 78452; 93017; 93306; A9502; J2785

== ENCOUNTER 2020-09-30 07:37 | Outpatient (CLI) | payer BC, MEDICARE ==
--- NOTE | 2020-09-30 09:17 | Vascular Lab Report ---
BILATERAL CAROTID DOPPLER ULTRASOUND INDICATION : CEREBRAL INFARCTION, ESSENTIAL HTN, MIXED HYPERLIPIDEMIA TECHNIQUE: Grayscale and color Doppler imaging performed through the neck. COMPARISON: 09/03/2017 FINDINGS: Right: There is mild smooth partially calcified plaque in the carotid bulb and proximal ICA. Peak s ystolic velocity in the CCA is 96 cm/s with end-diastolic velocity of 20 cm/s. Peak systolic velocity in the proximal ICA is 103 cm/s with end-diastolic velocity of 20 cm/s. ICA to CCA ratio is less amado n 2. There is antegrade flow in the ECA and the vertebral artery. Left: There is no significant atherosclerotic disease. Peak systolic velocity in the CCA is 115 cm/s with end-diastolic velocity of 28 cm/s. Peak systolic velocity in the proximal ICA is 97 cm/s with en d-diastolic velocity of 28 cm/s. ICA to CCA ratio is less than 2. There is antegrade flow in the ECA and the vertebral artery. IMPRESSION: No hemodynamically significant stenosis by NASCET criteria. Doppler velocities indicate l ess than 50% luminal narrowing bilaterally. Signer Name: Zack Hooks Jr, MD Signed: 09/30/2020 9:13 AM Workstation Name: [id number]
[2020-09-30 09:34] LABS: Alanine Aminotransferase 20 units/L (7-56); Albumin 4.2 g/dL (3.9-5); BUN/Creatinine Ratio 12; Blood Urea Nitrogen 12 mg/dL (9-20); Calcium 9.1 mg/dL (8.4-10.2); Chol/HDL Ratio 2.72 %; HDL Cholesterol 44 mg/dL (40-59); Hemolysis Index 8; LDL Cholesterol,Direct 71 mg/dL (50-130)
[2020-10-04 13:20] LABS: Vitamin D, 25-OH, D2 <4 ng/mL
== END 2020-09-30 07:38 | disposition home or self-care (01) ==
LOC: VAS 07:37
DX: I65.21 Occlusion and stenosis of right carotid artery (principal); I10 Essential (primary) hypertension; E78.2 Mixed hyperlipidemia; E55.9 Vitamin D deficiency, unspecified
CPT/HCPCS: 36415; 80053; 80061; 82306; 93880

== ENCOUNTER 2020-12-20 08:17 | Outpatient (CLI) | payer BC, MEDICARE ==
[2020-12-20 08:59] LABS: Basophils % (Auto) 0.5 % (0.0-1.8); Eosinophils # (Auto) 0.3 K/mm3 (0.0-0.4); Eosinophils % (Auto) 4.7 % (0.0-4.3); Hematocrit 46.4 % (35.5-45.6); Hemoglobin 15.9 gm/dl (11.8-15.2); Lymphocytes # (Auto) 1.4 K/mm3 (1.2-5.4); Lymphocytes % (Auto) 26.1 % (13.4-35.0); Mean Corpuscular HGB Conc 34 % (32-34); Mean Corpuscular Volume 92 fl (84-94); Monocytes # (Auto) 0.4 K/mm3 (0.0-0.8); Platelet Count 206 K/mm3 (140-440); Red Blood Count 5.03 M/mm3 (3.65-5.03); Red Cell Distribution Width 13.5 % (13.2-15.2)
[2020-12-20 09:22] LABS: Alanine Aminotransferase 16 units/L (7-56); Albumin 4.5 g/dL (3.9-5); BUN/Creatinine Ratio 10; Blood Urea Nitrogen 10 mg/dL (9-20); Calcium 9.1 mg/dL (8.4-10.2); Chol/HDL Ratio 2.84 %; HDL Cholesterol 44 mg/dL (40-59); Hemolysis Index 7; LDL Cholesterol,Direct 74 mg/dL (50-130)
== END 2020-12-20 08:18 | disposition home or self-care (01) ==
LOC: LAB 08:17
PROVIDERS: ATTEND Internal Medicine
DX: Z12.5 Encounter for screening for malignant neoplasm of prostate (principal); I10 Essential (primary) hypertension; E78.2 Mixed hyperlipidemia; Z86.73 Personal history of transient ischemic attack (TIA), and cerebral infarction without residual deficits
CPT/HCPCS: 36415; 80053; 80061; 84153; 85025